=== PATIENT | female | born 1995 | race Caucasian/White ===

== ENCOUNTER 2023-02-02 16:43 | Outpatient (CLI) | payer MEDICAID ==
--- NOTE | 2023-02-02 17:51 | Ultrasound Report ---
PROCEDURE: OB Limited INDICATIONS: UNSTABLE LIE OUTSIDE/PRIOR DATING DATA: Last menstrual period (LMP): 05/18/2022. LMP-based estimated date of delivery (RICO): 02/27/2023. First dating scan (date and location): 02/02/2023. Estimated date of delivery (RICO) from first dating scan: 02/27/2023. TECHNIQUE: Real-time scanning was performed of the fetus, with image documentation. Endovaginal scanning: Not performed COMPARISON: None. FINDINGS: A single living intrauterine gestation is present. Presentation: Cephalic Placenta: Placental position is anterior, without previa. Amniotic fluid index: 13.9 cm, 51% for gestational age. Largest vertical pocket measured 4.4 cm heart rate: 169 beats per minutes. Maternal cervical canal: 5.3 cm long; normal length is 2.5 cm or more. IMPRESSION: Single living intrauterine gestation. Cephalic presentation. Anterior placenta without e vidence for previa. Four-quadrant WYATT measuring 13.9 cm. Largest vertical pocket measures 4.4 cm Reviewed by: Vahe Norton MD on 02/02/2023 5:50 PM PDT Approved by: Vahe Norton MD on 02/02/2023 5:50 PM PDT Station ID: [id number]
== END 2023-02-02 16:44 | disposition home or self-care (01) ==
LOC: DI 16:43
PROVIDERS: ATTEND Midwife
DX: O32.0XX0 Maternal care for unstable lie, not applicable or unspecified (principal)

== ENCOUNTER 2023-07-31 08:00 | Outpatient (CLI) | payer MEDICAID | END 2023-07-31 23:59 | disposition home or self-care (01) | LOC: LAB.S 08:00 | PROVIDERS: ATTEND Emergency Medicine | DX: L03.011 Cellulitis of right finger (principal) | CPT/HCPCS: 87070; 87077; 87181; 87205 ==